=== PATIENT | female | born 1970 | race Caucasian/White ===

== ENCOUNTER → 2020-06-24 | Outpatient (CLI) | payer BC ==
--- NOTE | 2020-06-24 08:09 | US ---
EXAMINATION TYPE: US abdomen complete DATE OF EXAM: 06/24/2020 COMPARISON: NONE CLINICAL HISTORY: R79.89 Elevated Liver function test. Elevated liver enzymes. EXAM MEASUREMENTS: Liver Length: 12.6 cm Gallbladder Wall: .2 cm CBD: .5 cm Spleen: 9.4 cm Right Kidney: 11.2 x 3.9 x 5.1 cm Left Kidney: 9.5 x 3.5 x 2.9 cm Pancreas: wnl Liver: wnl Gallbladder: wnl Evidence for sonographic Grey's sign: No CBD: wnl Spleen: wnl Right Kidney: wnl Left Kidney: wnl Upper IVC: wnl Abd Aorta: wnl The liver is homogenous. The intrahepatic portion of the IVC and visualized proximal, mid, and dista l abdominal aorta are within normal limits. There is no evidence of cholelithiasis. Common bile broderick t is unremarkable. The visualized portions of the pancreas are homogenous. The spleen is unremarkab le. Kidneys are symmetric and free of hydronephrosis. No renal lesions are seen. IMPRESSION: No worrisome focal intrahepatic mass or intrahepatic ductal dilatation. .
== END | disposition home or self-care (01) ==
LOC: RADUSWWP 07:34
PROVIDERS: ATTEND Internal Medicine Gastroenterology
DX: R79.89 Other specified abnormal findings of blood chemistry (principal)
CPT/HCPCS: 76700